=== PATIENT | male | born 1970 | race Caucasian/White ===

== ENCOUNTER 2018-01-05 11:02 | Emergency (ER) | payer OTHER ==
[2018-01-05 11:25] VITALS: BP 133/89
--- NOTE | 2018-01-05 11:49 | UC ---
Ear Complaint HPI - HPI Summary HPI Summary: started with R ear pain for 4-5 days-had R upper tooth surgery few days before. did go swimming 1 week ago\ no discharge. yesterday upper R teeth started to hurt again and going into jaw - History of Current Complaint Chief Complaint: UCEar Stated Complaint: EAR PAIN Time Seen by Provider: 01/05/18 11:36 Hx Obtained From: Patient Onset/Duration: Gradual Onset Severity Initially: Mild Severity Currently: Mild Pain Intensity: 2 Aggravating Factors: Nothing Alleviating Factors: Nothing - Allergies/Home Medications Allergies/Adverse Reactions: Allergies Allergy/AdvReac Type Severity Reaction Status Date / Time No Known Allergies Allergy Verified 01/05/18 11:25 Home Medications: Home Medications Acetaminophen [Tylophen] 500 mg PO ONCE PRN 01/05/18 [History Confirmed 01/05/18 ] PMH/Surg Hx/FS Hx/Imm Hx Previously Healthy: Yes Cardiovascular History: Cardiac Disease - Surgical History Surgical History: Yes Surgery Procedure, Year, and Place: 1989 - THUMB - REPAIR OF LIGAMENT. dental surgery 2018. wisdom tooth removal at age 20 - Family History Known Family History: Positive: None - Social History Occupation: Employed Full-time Lives: With Family Alcohol Use: Occasionally Substance Use Type: None Smoking Status (MU): Never Smoked Tobacco Review of Systems Constitutional: Negative Skin: Negative ENT: Ear Ache Respiratory: Negative Cardiovascular: Negative Musculoskeletal: Negative Neurological: Negative Psychological: Negative All Other Systems Reviewed And Are Negative: Yes Physical Exam Triage Information Reviewed: Yes Appearance: Well-Appearing, No Pain Distress, Well-Nourished Vital Signs: Initial Vital Signs Temp 97.9 F 01/05/18 11:16 Pulse 85 01/05/18 11:16 Resp 18 01/05/18 11:16 BP 133/89 01/05/18 11:16 Pulse Ox 100 01/05/18 11:16 Vital Signs Reviewed: Yes ENT: Positive: TM bulging, TM dull - R side L TM WNL, TM red Dental Exam: Normal Neck exam: Normal Neck: Positive: No Lymphadenopathy Respiratory Exam: Normal Cardiovascular Exam: Normal Musculoskeletal Exam: Normal Neurological Exam: Normal Psychological Exam: Normal Skin Exam: Normal Ear Complaint Course/Dx - Differential Dx/Diagnosis Differential Diagnosis/HQI/PQRI: Cellulitis, Mastoiditis, Otitis Externa, Otitis Media Provider Diagnoses: R OM Discharge - Sign-Out/Discharge Documenting (check all that apply): Discharge/Admit/Transfer - Discharge Plan Condition: Good Disposition: HOME Prescriptions: Amoxicillin/Clavulanate TAB* [Augmentin TAB 875*] 875 mg PO BID #20 tab Referrals: Kingsley Astorga MD [Primary Care Provider] - 2 Days (if no better) Additional Instructions: keep ears clean and dry start antibiotic as prescribed ibuprofen as directed for pain - Billing Disposition and Condition Condition: GOOD Disposition: Home
== END 2018-01-05 12:00 | disposition home or self-care (01) ==
LOC: UCEAST 11:02
DX: H66.91 Otitis media, unspecified, right ear (principal)
CPT/HCPCS: 99212; G0463

== ENCOUNTER 2018-01-07 17:20 | Emergency (ER) | payer OTHER ==
[2018-01-07 17:42] VITALS: BP 121/83
--- NOTE | 2018-01-07 17:45 | UC ---
Ear Complaint HPI - HPI Summary HPI Summary: 47 yo male presents with right ear pain going into right jaw. Noticed a rash today. He was seen 2 days ago and placed on Augmentin for an ear infection. Denies fever, chills, SOB, chest pain, tinnitus, or decreased hearing. - History of Current Complaint Chief Complaint: UCEar Stated Complaint: EAR COMPLAINT,JAW PAIN Time Seen by Provider: 01/07/18 17:45 Hx Obtained From: Patient Severity Initially: Mild Severity Currently: Moderate Pain Intensity: 5 Pain Scale Used: 0-10 Numeric - Allergies/Home Medications Allergies/Adverse Reactions: Allergies Allergy/AdvReac Type Severity Reaction Status Date / Time No Known Allergies Allergy Verified 01/05/18 11:25 Home Medications: Home Medications Ibuprofen TAB* [Motrin TAB* 400 MG] 01/07/18 [History] PMH/Surg Hx/FS Hx/Imm Hx - Additional Past Medical History Additional PMH: None Previously Healthy: Yes - Surgical History Surgical History: Yes Surgery Procedure, Year, and Place: 1989 - THUMB - REPAIR OF LIGAMENT. dental surgery 2018. wisdom tooth removal at age 20 - Family History Known Family History: Positive: None - Social History Occupation: Employed Full-time Lives: With Family Alcohol Use: Occasionally Substance Use Type: None Smoking Status (MU): Never Smoked Tobacco Review of Systems Constitutional: Negative Skin: Rash Eyes: Negative ENT: Negative Respiratory: Negative Cardiovascular: Negative Gastrointestinal: Negative Neurovascular: Negative Neurological: Negative Psychological: Negative All Other Systems Reviewed And Are Negative: Yes Physical Exam - Summary Physical Exam Summary: GENERAL: NAD. WDWN. No pain distress. SKIN: Rash on right V2/V3 of trigeminal nerve with scant blistering. No lesions within the ear canal or within 2.0cm of the right eye. No streaking, bleeding, or drainage. HEENT: Head: AT/NC Eyes: EOM intact. Conjunctiva clear without inflammation or discharge. Ears: TTP about right ear. Hearing grossly normal. TMs intact, no bulging, erythema, or edema. NECK: Supple. Nontender. No lymphadenopathy. CHEST: No accessory muscle use. Breathing comfortably and in no distress. CV: Pulses intact NEURO: Alert. CN II-XII grossly intact. PSYCH: Age appropriate behavior. Triage Information Reviewed: Yes Vital Signs: Initial Vital Signs Temp 98.1 F 01/07/18 17:35 Pulse 64 01/07/18 17:35 Resp 16 01/07/18 17:35 BP 121/83 01/07/18 17:35 Pulse Ox 100 01/07/18 17:35 Ear Complaint Course/Dx - Course Course Of Treatment: Shingles of V2/V3 of right trigeminal nerve. Advised to f/ u with ENT for possible ear involvement. Rx for valacyclovir and neurontin. - Differential Dx/Diagnosis Provider Diagnoses: Shingles right V2/V3 of trigeminal nerve Discharge - Sign-Out/Discharge Documenting (check all that apply): Patient Departure - Discharge Plan Condition: Stable Disposition: HOME Prescriptions: Gabapentin CAP(*) [Neurontin 100 mg CAP(*)] 100 mg PO TID PRN #21 cap PRN Reason: Pain ValACYclovir (*) [Valtrex 1 GM(*)] 1 gm PO TID #21 tab Patient Education Materials: Shingles (ED) Forms: *Work Release Referrals: Kingsley Astorga MD [Primary Care Provider] - Dru Mack MD [Medical Doctor] - As Soon As Possible Additional Instructions: If you develop a fever, shortness of breath, chest pain, new or worsening symptoms - please call your PCP or go to the ED. 1) May take your at home pain medication every 8 hours if needed 2) Please call ENT at the number below to schedule a follow up appointment as these shingles involve your ear. - Billing Disposition and Condition Condition: STABLE Disposition: Home
== END 2018-01-07 18:22 | disposition home or self-care (01) ==
LOC: UCEAST 17:20
DX: B02.9 Zoster without complications (principal)
CPT/HCPCS: 99212; G0463